=== PATIENT | female | born 1965 | race Caucasian/White ===

== ENCOUNTER 2023-11-25 21:27 | Observation (INO) | payer BC, SELFPAY ==
[2023-11-25 21:33] VITALS: BP 126/68; PULSE 81; RESP 16; TEMP 36.9; O2SAT 98; BMI 21.8
[2023-11-25 22:16] LABS: Add Manual Diff / Slide Review NO; Basophils Absolute Auto 100 /uL (0-100); Basophils Percent Auto 0.6 % (0-2); Eosinophils Absolute Auto 0 /uL (0-450); Eosinophils Percent Auto 0.4 % (2-4); Hematocrit 40.4 % (36-46); Hemoglobin 14.1 g/dL (12.0-16.0); Lymphocytes Absolute Auto 1700 /uL (1100-4500); Lymphocytes Percent Auto 15.7 % (25-40); Mean Corpuscular Hemoglobin 29.9 PG (26-34); Mean Corpuscular Volume 85.6 fL (80-100); Monocytes Absolute Auto 500 /uL (0-900); Monocytes Percent Auto 4.3 % (3-14); Neutrophils Absolute Auto 8700 /uL (1500-7000); Platelet Count 271 X10^3/uL (150-400); Red Blood Cell Count 4.72 X10^6/uL (4.0-5.2); Red Cell Distribution Width 13.4 % (11.6-14.8); White Blood Cell Count 11.1 X10^3/uL (4.5-11.0)
[2023-11-25 22:22] LABS: Alanine Aminotransferase 17 IU/L (<35); Albumin 4.5 g/dL (3.5-5.0); Albumin Globulin Ratio 1.2 (1.0-2.8); Alkaline Phosphatase 85 U/L (38-126); Aspartate Aminotransferase 29 IU/L (14-36); BUN Creatinine Ratio 19.3 (6-22); Bilirubin Total 1.1 mg/dL (0.2-1.3); Blood Urea Nitrogen 11 mg/dL (7-17); Calcium 9.5 mg/dL (8.4-10.2); Carbon Dioxide 23 mmol/L (22-32); Chloride 102 mmol/L (98-107); Estimated Glomerular Filt Rate > 60 mL/min (>60); Globulin 3.8 g/dL (1.7-4.1); Glucose 136 mg/dL (80-110); HEMOLYSIS < 15 (0-50); Lipase 48 U/L (23-300); Potassium 3.9 mmol/L (3.4-5.1); Sodium 136 mmol/L (137-145); Total Protein 8.3 g/dL (6.3-8.2)
--- NOTE | 2023-11-25 22:43 | ED.ABDPAIN ---
HPI - Abdominal Pain General Chief Complaint: Abdominal Pain Stated Complaint: Gall bladder attack Time Seen by Provider: 11/25/23 21:31 Source: patient Mode of arrival: Family Vehicle History of Present Illness HPI narrative: 58-year-old female with history of stage IV breast cancer on maintenance chemotherapy presents for 1 day of nausea, vomiting, generalized abdominal pain. Patient states that she has had intermittent abdominal pains this month and was recently diagnosed with a 9 mm gallstone. Patient has pending appointment with General surgery in December, but states that she was here on vacation visiting family. Today she had worsening of her pain with nausea and vomiting not controlled with Zofran. She was concerned that her gallbladder may be causing her symptoms and decided to present for evaluation. Related Data Home Medications Medication Instructions Recorded Confirmed anastrozole 1 mg tablet 1 mg PO DAILY 11/25/23 11/25/23 bupropion HCl 150 mg tablet,12 hr 150 mg PO DAILY 11/25/23 11/25/23 sustained-release denosumab 60 mg/mL subcutaneous 60 mg SUBCUT [id number] 11/25/23 11/25/23 syringe Allergies Allergy/AdvReac Type Severity Reaction Status Date / Time heparin Allergy Severe Anaphylaxis Verified 11/25/23 21:59 Exam Initial Vital Signs Initial Vital Signs: Vital Signs Temperature 98.5 F 11/25/23 21:33 Pulse Rate 81 11/25/23 21:33 Respiratory Rate 16 11/25/23 21:33 Blood Pressure 126/68 11/25/23 21:33 Pulse Oximetry 98 11/25/23 21:33 Oxygen Delivery Method Room Air 11/25/23 21:33 Const: Awake, alert, no acute distress, nontoxic appearing Cardiac: regular rate, regular rhythm RESP: unlabored, clear bilaterally, no wheezing GI: Soft, generalized tenderness to deep palpation without rebound or guarding, negative Bernal's sign Skin: Warm, Dry, intact, no rashes Neuro: AO x3, CN II-XII grossly intact, moves all extremities Course Orders Ordered: ED Orders 11/25/23 21:53 Complete Blood Count AUTO DIFF Stat Comprehensive Metabolic Panel Stat Lipase Stat 11/25/23 22:42 CT abdomen pelvis w con Stat 11/25/23 22:58 Urine Microscopic Stat Sodium Chloride (Normal Saline 0.9%) 1,000 mls @ 125 mls/hr IV CONT TRINA Discontinued Medications Morphine Sulfate (Morphine 4 Mg/Ml Inj) 4 mg IV NOW ONE Stop: 11/25/23 23:36 Ondansetron HCl (Ondansetron 4 Mg/2 Ml Inj) 4 mg IV NOW ONE Stop: 11/25/23 23:36 Vital Signs Vital signs: Vital Signs - 8 hr 11/25/23 21:33 Temperature 98.5 F Pulse Rate 81 Respiratory Rate 16 Blood Pressure 126/68 Pulse Oximetry 98 Oxygen Delivery Method Room Air MDM - Abdominal Pain Differential Diagnosis Differential diagnosis: Likely abdominal pain, constipation and small bowel obstruction Lab Data 11/25/23 21:53 11/25/23 21:53 Labs: Lab Results 11/25/23 Range/Units 21:53 WBC 11.1 H (4.5-11.0) X10^3/uL RBC 4.72 (4.0-5.2) X10^6/uL Hgb 14.1 (12.0-16.0) g/dL Hct 40.4 (36-46) % MCV 85.6 (80-100) fL MCH 29.9 (26-34) PG MCHC 35.0 (30-36) % RDW 13.4 (11.6-14.8) % Plt Count 271 (150-400) X10^3/uL Neut % (Auto) 79.0 H (50-75) % Lymph % (Auto) 15.7 L (25-40) % [place] % (Auto) 4.3 (3-14) % Eos % (Auto) 0.4 L (2-4) % Baso % (Auto) 0.6 (0-2) % Neut # (Auto) 8700 H (7188-9654) /uL Lymph # (Auto) 1700 (8068-3359) /uL [place] # (Auto) 500 (0-900) /uL Eos # (Auto) 0 (0-450) /uL Baso # (Auto) 100 (0-100) /uL Sodium 136 L (137-145) mmol/L Potassium 3.9 (3.4-5.1) mmol/L Chloride 102 (98-107) mmol/L Carbon Dioxide 23 (22-32) mmol/L BUN 11 (7-17) mg/dL Creatinine 0.57 (0.52-1.04) mg/dL Estimated GFR > 60 (>60) mL/min BUN/Creatinine Ratio 19.3 (6-22) Glucose 136 H (80-110) mg/dL Calcium 9.5 (8.4-10.2) mg/dL Total Bilirubin 1.1 (0.2-1.3) mg/dL AST 29 (14-36) IU/L ALT 17 (<35) IU/L Alkaline Phosphatase 85 (38-126) U/L Total Protein 8.3 H (6.3-8.2) g/dL Albumin 4.5 (3.5-5.0) g/dL Globulin 3.8 (1.7-4.1) g/dL Albumin/Globulin Ratio 1.2 (1.0-2.8) Lipase 48 (23-300) U/L Point of care testing: Urine Dip Bedside Urine Glucose Negative Bedside Urine Bilirubin - Negative Bedside Urine Ketone +/- 5 Urine Specific [place] 1.015 Bedside Urine Occult Blood - Negative Bedside Urine pH 7.0 Bedside Urine Protein +/- 15 Bedside Urine Urobilinogen +/- 1mg Bedside Urine Nitrite - Negative Bedside Urine Leukocytes +/- [address] scan - abdomen/pelvis: Radiologist's Impression: PROCEDURE: CT ABDOMEN PELVIS W CON INDICATIONS: GEN ABD PAIN, N/V, WORSE SUPRAPUBIC TECHNIQUE: After the administration of intravenous contrast, axial sections acquired from the lung bases to the pubic symphysis. Coronal and sagittal reformats were performed. For radiation dose reduction, the following was used: automated exposure control, adjustment of mA and/or kV according to patient size. COMPARISON: None. FINDINGS: Image quality: Diagnostic. Lower Chest: No significant findings. ABDOMEN: Liver: No solid mass. Gallbladder: Cholelithiasis without CT evidence of acute cholecystitis. Biliary ducts: No biliary dilation. Pancreas: No ductal dilation. Spleen: Size is within normal limits. Adrenal Glands: No adrenal nodules. Kidneys and Ureters: No hydronephrosis. Bilateral extrarenal pelvises No solid mass. No complex renal cystic lesion which requires follow up. Stomach and Bowel: Wall thickening the gastric antrum. Normal colonic caliber, without significant wall thickening. Anastomotic sutures in the right colon. Dilated loops of small bowel with air-fluid levels measuring up to 4.7 cm. There appears to be a transition point within the pelvis (2/67, 4/46). Peritoneum: Trace free intraperitoneal fluid, likely reactive. No free air. Ventral Wall: No significant ventral hernia. Abdominal Nodes: Prominent and enlarged retroperitoneal lymph nodes. For example a right periaortic lymph node measuring 1.3 cm (2/37) and a left periaortic lymph node measuring 1.2 cm (2/28). Vessels: Aorta and inferior vena cava are normal in size. Mild atherosclerotic vascular calcifications. PELVIS: Pelvic Organs: Unremarkable. Bladder: No bladder wall thickening, accounting for underdistention. Pelvic Nodes: No enlarged lymph nodes. Miscellaneous: No inguinal hernias are seen. Bones: No aggressive osseous abnormality. Degenerative changes of the spine, most pronounced at L4-5. IMPRESSION: 1. Findings consistent with small-bowel obstruction with transition point in the pelvis. No extraluminal gas to suggest perforation. 2. Enlarged retroperitoneal lymph nodes, given history of cancer this is concerning for metastatic disease. Recommend attention on follow-up exams. 3. Wall thickening of the gastric antrum, nonspecific. May represent gastritis. Attention on follow-up. 4. Cholelithiasis without evidence of acute cholecystitis. Dictated by: Tariq Lobo M.D. on 11/25/2023 at 23:03 Approved by: Tariq Lobo M.D. on 11/25/2023 at 23:09 [facility] Narrative Medical decision making narrative: Nontoxic appearing patient with worsening of previous abdominal pain. Abdomen soft, no peritoneal signs. Patient was concerned that her gallbladder may be causing her symptoms, however her point of maximum discomfort is in her lower abdomen near the suprapubic region. Lesser suspicion for cholecystitis at this time based on exam. Patient states that her nausea and pain are currently controlled. IV fluids running. Laboratory work and CT imaging to be ordered. Laboratory work shows WBC count 11.1, hemoglobin 14.1, platelets 271, sodium 136, potassium 3.9, creatinine 0.57, T bili 1.1, AST 29, ALT 17, alk phos 85. CT of the abdomen and pelvis shows small bowel obstruction with transition point in the lower pelvis. Enlarged lymph nodes concerning for metastatic disease, however there are no priors for comparison. Patient informed of all lab and imaging results including the enlarged lymph nodes on CT. I discussed case with on-call general surgery Dr. Nova, who will admit the patient to her service. Prior to going upstairs patient requested pain and nausea medications, which were ordered. Discharge Plan Departure Patient Disposition: Admitted as Observation Clinical Impression: Small bowel obstruction, Stage IV carcinoma of breast Admit Date/Time: 11/25/23 23:33 Admit Provider: Lizette Nova
[2023-11-25] MEDS: HYDROMORPHONE 1 MG INJ IV (23:50)
[2023-11-25] MEDS: ONDANSETRON 4 MG/2 ML INJ IV (23:51)
[2023-11-25] MEDS: SODIUM CHLORIDE 0.9% 1,000 ML 125 ML IV (23:51)
[2023-11-25 23:58] LABS: RBC Urine None Seen (0-5/HPF); Urine Volume Low Vol <10mL (spun); WBC Urine 0-1/HPF (0-5/HPF)
[2023-11-25 23:59] LABS: Bacteria Urine Occasional (0-1); Culture Indicated Urine Cult Not Indicated; Mucus Urine 1+ (Negative); Squamous Epithelial Cell Urine 0-1 /HPF (0-5/HPF)
--- NOTE | 2023-11-26 | DI.RAD.S_ITS ---
PROCEDURE: XR GASTROGRAFIN CHALLENGE COMPARISON: None. INDICATIONS: sbo FINDINGS: 2 hours after administration of Gastrografin, there is intraluminal contrast throughout the large bowel. IMPRESSION: 2 hours after administration of Gastrografin, there is intraluminal contrast throughout the large bowel. Dictated by: Reno Carroll M.D. on 11/26/2023 at 13:06 Approved by: Reno Carroll M.D. on 11/26/2023 at 13:06
[2023-11-26 00:08] VITALS: BP 126/78; PULSE 95; RESP 18; TEMP 36.8; O2SAT 98
[2023-11-26 00:21] VITALS: BP 121/87; PULSE 75; RESP 16; TEMP 36.8; O2SAT 99
[2023-11-26] MEDS: DEXTROSE 5%-0.9% NS 1,000 ML 100 ML IV ×2 (00:45→10:54)
[2023-11-26] MEDS: SCOPOLAMINE 1 PATCH TOP (00:49)
[2023-11-26 00:53] VITALS: BMI 21.8
[2023-11-26 00:54] VITALS: BP 128/69; PULSE 64; RESP 18; TEMP 35.9; O2SAT 99
[2023-11-26 06:00] VITALS: BP 116/52; PULSE 57; RESP 18; TEMP 35.9; O2SAT 99
[2023-11-26 06:14] LABS: Add Manual Diff / Slide Review NO; Basophils Absolute Auto 0 /uL (0-100); Basophils Percent Auto 0.4 % (0-2); Eosinophils Absolute Auto 100 /uL (0-450); Eosinophils Percent Auto 1.9 % (2-4); Hematocrit 29.6 % (36-46); Hemoglobin 10.4 g/dL (12.0-16.0); Lymphocytes Absolute Auto 2000 /uL (1100-4500); Lymphocytes Percent Auto 33.3 % (25-40); Mean Corpuscular Hemoglobin 30.9 PG (26-34); Mean Corpuscular Volume 88.2 fL (80-100); Monocytes Absolute Auto 400 /uL (0-900); Monocytes Percent Auto 6.2 % (3-14); Neutrophils Absolute Auto 3600 /uL (1500-7000); Neutrophils Percent Auto 58.2 % (50-75); Platelet Count 170 X10^3/uL (150-400); Red Blood Cell Count 3.36 X10^6/uL (4.0-5.2); White Blood Cell Count 6.2 X10^3/uL (4.5-11.0)
[2023-11-26 08:41] VITALS: BP 96/49; PULSE 46; RESP 16; TEMP 35.8; O2SAT 97
[2023-11-26 09:09] LABS: Blood Urea Nitrogen 6 mg/dL (7-17); Calcium 6.6 mg/dL (8.4-10.2); Carbon Dioxide 20 mmol/L (22-32); Chloride 114 mmol/L (98-107); Estimated Glomerular Filt Rate > 60 mL/min (>60); HEMOLYSIS < 15 (0-50); Potassium 2.8 mmol/L (3.4-5.1); Sodium 140 mmol/L (137-145)
[2023-11-26 10:04] LABS: Glucose 116 mg/dL (80-110)
--- NOTE | 2023-11-26 10:22 | PC.NURSE ---
Addendum entered by Rita Medina R.N. 11/26/23 12:00: Patients K+ 2.8, pharmacy ordered 6 iv potassium riders to be infused. Patient is tolerating them at 65cc/hr. When the rate was at 100cc/hr, she was feeling some discomfort and burning. Patient has a warm blanket over her iv and is napping now, daughter is in room. Original Note: Patient states that she is feeling comfortable at this time. She denies pain or discomfort, Patient up to the bathroom and voided 250cc of yellow urine. She has her family and sister visiting now and patient ambulated in the halls earlier. has ordered her medications and also a gastrografen challenge for today. She will be in later to assess patient. Bt are hypoactive now and patient has not had a bowel movement yet today. Labs were drawn twice and is showed a blood glucose level in the 600s both times. This Rn just checked patients blood sugar and it was 114.
--- NOTE | 2023-11-26 11:06 | CM.DANOTE ---
Initial DCP Assessment Visit Note Reviewed EMR and team rounds for status updates. Met with pt and several family members at bedside to introduce self and role. Pt was found to be alert/ oriented, sitting upright in bed, visiting with family. Pt is here with her family visiting relatives, she lives independently with her spouse in their own home in [place]. Family will transport once she's medically cleared for home d/c. Payor: [employer] Attending: Dr. Nova Pt is a 58 year-old F who presented to the ED last evening with c/o nausea/vomiting, and generalized abdominal pain. She had taken some Zofran without any lasting benefit prior to arriving at the ED. CT abd/pelvis showed cholelithiasis without cholecystititis, as well as enlarged retroperitoneal lymph nodes, which were incidentally found and recommended for further evaluation post-discharge for concerns of metastasis. Pt has been receiving maintenance tx for stage IV breast cancer in [place]. Pt was made NPO, started on IV pain meds/antiemetics, and placed in OBS for further Surgical Consultation, which will be later this afternoon. This morning she was started on a Gastrografin challenge. Dr. Gonzalez will be meeting w/pt around noon today to see if pt has made any progress. DCP will continue to follow and assist with any evolving d/c needs prior to her eventual d/c home w/family. 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 Yes Advance Directives on File No History Provided By Patient,Family Member,Medical Record Has Patient been admitted in last 30 No days? Prior Living Arrangements House Household Members spouse Type of transporation used prior to Drives own vehicle admit Independent with ADL's Yes Is patient alert and oriented? Yes Caregiver for Another No Comment OP Oncology. Comment No identified home d/c needs at this time. Barriers to Discharge No Discharge Plan Home Transportation Arrangement Spouse Referrals Initiated None needed Whiteboard Updated in Patient Room with Yes name and ext. # of Robotic Maintenance Technician Review Status In Process Please Provide Date Initial DC 11/26/23 Assessment Was Performed
[2023-11-26] MEDS: POTASSIUM CHLORIDE IN WATER 10 MEQ/100 ML PIGGYBACK 55 MEQ IV ×2 (11:15→12:57)
[2023-11-26 11:36] VITALS: BP 97/45; PULSE 52; RESP 16; TEMP 36; O2SAT 94
[2023-11-26] MEDS: PANTOPRAZOLE 40 MG VIAL IV (12:56)
--- NOTE | 2023-11-26 14:03 | PM.HP.1 ---
History of Present Illness History of Present Illness Date Patient Seen: 11/26/23 Time Patient Seen: 14:03 Chief complaint: Gall bladder attack Narrative: Complex patient. Currently gastroenteritis, intermittent biliary colic, 15 lbs weight loss, w/o metastatic breast cancer (primary not found, felt to by lobular, 20 yrs ago. Recurrence years later as colon met). Symptoms of RUQ pain that is sharp and intermittent, nausea, vomitting, loose stools to diarrhea, [address] scan has multiple finds that lead me to believe her problem is multifocal. (9mm) gallstone, parital SBO with transition in pelvis and small segment with fecalization (c/w subacute/chronic). Right hydrourteter. Retroperitoneal adenopathy with could be reactive. Gastrografin study shows no obstruction (transit to colon in 2hrs). [facility] Social History household members: spouse Smoking Status: Never smoker Meds Home Medications and Allergies Home Medications Medication Instructions Recorded Confirmed Type anastrozole 1 mg tablet 1 mg PO DAILY 11/25/23 11/25/23 History bupropion HCl 150 mg tablet,12 hr 150 mg PO DAILY 11/25/23 11/25/23 History sustained-release denosumab 60 mg/mL subcutaneous 60 mg SUBCUT [id number] 11/25/23 11/25/23 History syringe oxycodone 5 mg tablet 5 mg PO 4XD PRN Pain, Moderate 11/26/23 Rx (4-6) #20 tabs pantoprazole 40 mg tablet,delayed 40 mg PO BID #60 tabs 11/26/23 Rx release (Protonix) Allergies Allergy/AdvReac Type Severity Reaction Status Date / Time heparin Allergy Severe Anaphylaxis Verified 11/25/23 21:59 Morpholine Analogues AdvReac Intermediate Nightmare Verified 11/26/23 02:43 Review of Systems Review of Systems ROS: Yes All systems reviewed with the patient and are negative except as otherwise documented Exam Vital Signs (past 8 hours): - 11/26/23 07:00 11/26/23 08:41 11/26/23 11:36 Temperature 96.4 F L 96.8 F L Pulse Rate 46 L 52 L Respiratory Rate 16 16 Blood Pressure 96/49 L 97/45 L Pulse Oximetry 97 94 Oxygen Delivery Method Room Air Oxygen Flow Rate 0 0 Oxygen Delivery Method Room Air Oxygen Flow Rate 0 Const General: cooperative, comfortable and No in distress Nutritional Appearance: underweight Orientation: alert, awake and oriented x3 HENIN Head: normocephalic and atraumatic Ears: hearing grossly normal bilaterally Eyes Periorbital: periorbital findings normal Sclera: sclerae normal Neck Neck: trachea midline Resp Effort & Inspection: normal respiratory effort and able to speak in complete sentences Cardio Rate: regular rate Rhythm: regular rhythm GI Inspection: non-distended Palpation: soft Skin General: elasticity normal and turgor normal Neuro General: patient alert, patient awake and patient oriented x3 Cognition: normal cognition Psych Mental Status: mental status grossly normal Judgment: judgment good Objective Labs 11/25/23 21:53 11/26/23 07:10 Labs: Laboratory Results - last 24 hr 11/25/23 11/25/23 11/25/23 05:23 21:52 21:53 WBC 6.2 11.1 H D RBC 3.36 L 4.72 Hgb 10.4 L 14.1 Hct 29.6 L 40.4 MCV 88.2 85.6 MCH 30.9 29.9 MCHC 35.0 35.0 RDW 13.0 13.4 Plt Count 170 271 Neut % (Auto) 58.2 79.0 H D Lymph % (Auto) 33.3 15.7 L [place] % (Auto) 6.2 4.3 Eos % (Auto) 1.9 L 0.4 L Baso % (Auto) 0.4 0.6 Neut # (Auto) 3600 8700 H Lymph # (Auto) 2000 1700 [place] # (Auto) 400 500 Eos # (Auto) 100 0 Baso # (Auto) 0 100 Sodium 136 L Potassium 3.9 Chloride 102 Carbon Dioxide 23 BUN 11 Creatinine 0.57 Estimated GFR > 60 BUN/Creatinine Ratio 19.3 Glucose 136 H Calcium 9.5 Total Bilirubin 1.1 AST 29 ALT 17 Alkaline Phosphatase 85 Total Protein 8.3 H Albumin 4.5 Globulin 3.8 Albumin/Globulin Ratio 1.2 Lipase 48 Urine RBC None seen Urine WBC 0-1/hpf Ur Squamous Epith Cells 0-1 /hpf Urine Bacteria Occasional (0-1) Urine Mucus 1+ H Ur Culture Indicated? Cult not indicated Vol Urine Centrifuged Low vol <10ml (spun) A 11/26/23 07:10 WBC RBC Hgb Hct MCV MCH MCHC RDW Plt Count Neut % (Auto) Lymph % (Auto) [place] % (Auto) Eos % (Auto) Baso % (Auto) Neut # (Auto) Lymph # (Auto) [place] # (Auto) Eos # (Auto) Baso # (Auto) Sodium 140 Potassium 2.8 L Chloride 114 H Carbon Dioxide 20 L BUN 6 L Creatinine 0.43 L Estimated GFR > 60 BUN/Creatinine Ratio 14.0 Glucose 116 H Calcium 6.6 L Total Bilirubin AST ALT Alkaline Phosphatase Total Protein Albumin Globulin Albumin/Globulin Ratio Lipase Urine RBC Urine WBC Ur Squamous Epith Cells Urine Bacteria Urine Mucus Ur Culture Indicated? Vol Urine Centrifuged Assessment & Plan Assessment & Plan narrative: Gastro enteritis likely viral Intermittent biliary colic with 15lb weight loss due to increasing frequency H/o metastatic breast cancer and partial colectomy. CT findings (w/o) symptoms of right hydroureter. And imaging of SBO is may represent adhesive disease and partial obstruction with higher volumes of stool. Plan: Discharge home with Protonix bid for 4 weeks (had normal EGD 3 weeks ago). Scopolamine patch for nausea Diet of low fat, high protein and fiber. Recommend she regain weight in case the loss of body fat makes her adhesive disease more prominent. Recommend elective lap yakov Time-Based Coding :: [TOTAL MINUTES] spent with patient and on the chart (including review of chart, obtaining history, exam, reviewing outside data, placing orders, documenting exam and treatment plan, and counseling patient) on [DATE].
--- NOTE | 2023-11-26 14:29 | PM.DS.1 ---
History of Present Illness History of Present Illness Date Patient Seen: 11/26/23 Time Patient Seen: 14:29 Chief complaint: Gall bladder attack Narrative: Complex patient. Currently gastroenteritis, intermittent biliary colic, 15 lbs weight loss, w/o metastatic breast cancer (primary not found, felt to by lobular, 20 yrs ago. Recurrence years later as colon met). Symptoms of RUQ pain that is sharp and intermittent, nausea, vomitting, loose stools to diarrhea, [address] scan has multiple finds that lead me to believe her problem is multifocal. (9mm) gallstone, parital SBO with transition in pelvis and small segment with fecalization (c/w subacute/chronic). Right hydrourteter. Retroperitoneal adenopathy with could be reactive. Gastrografin study shows no obstruction (transit to colon in 2hrs). Discharge Providers Provider Date of admission: 11/25/23 23:33 Discharge Date: 11/26/23 Primary care physician: Doctor Sarina MD Discharge provider: Lizette Nova MD Summary Hospital Course Discharge Diagnosis: gastroenteritis biliary colic underweight Hospital Course: Bowel rest and gastrografin challege (proving no persistent obstruction). anti nausea, IV hydration. The hyper glycemia and low potassium likely from draw in relation to IV. Status at Discharge Cognitive/behavioral status at discharge: oriented Functional status at discharge: independent ambulation Overall status at discharge: patient is progressing back to baseline Time Spent with Patient Time spent: Greater than 30 minutes Exam Vital Signs (past 8 hours): - 11/26/23 07:00 11/26/23 08:41 11/26/23 11:36 Temperature 96.4 F L 96.8 F L Pulse Rate 46 L 52 L Respiratory Rate 16 16 Blood Pressure 96/49 L 97/45 L Pulse Oximetry 97 94 Oxygen Delivery Method Room Air Oxygen Flow Rate 0 0 Oxygen Delivery Method Room Air Oxygen Flow Rate 0 Narrative Exam Narrative: see H and P Objective Labs 11/25/23 21:53 11/26/23 07:10 Labs: Laboratory Results - last 24 hr 11/25/23 11/25/23 11/25/23 05:23 21:52 21:53 WBC 6.2 11.1 H D RBC 3.36 L 4.72 Hgb 10.4 L 14.1 Hct 29.6 L 40.4 MCV 88.2 85.6 MCH 30.9 29.9 MCHC 35.0 35.0 RDW 13.0 13.4 Plt Count 170 271 Neut % (Auto) 58.2 79.0 H D Lymph % (Auto) 33.3 15.7 L [place] % (Auto) 6.2 4.3 Eos % (Auto) 1.9 L 0.4 L Baso % (Auto) 0.4 0.6 Neut # (Auto) 3600 8700 H Lymph # (Auto) 2000 1700 [place] # (Auto) 400 500 Eos # (Auto) 100 0 Baso # (Auto) 0 100 Sodium 136 L Potassium 3.9 Chloride 102 Carbon Dioxide 23 BUN 11 Creatinine 0.57 Estimated GFR > 60 BUN/Creatinine Ratio 19.3 Glucose 136 H Calcium 9.5 Total Bilirubin 1.1 AST 29 ALT 17 Alkaline Phosphatase 85 Total Protein 8.3 H Albumin 4.5 Globulin 3.8 Albumin/Globulin Ratio 1.2 Lipase 48 Urine RBC None seen Urine WBC 0-1/hpf Ur Squamous Epith Cells 0-1 /hpf Urine Bacteria Occasional (0-1) Urine Mucus 1+ H Ur Culture Indicated? Cult not indicated Vol Urine Centrifuged Low vol <10ml (spun) A 11/26/23 07:10 WBC RBC Hgb Hct MCV MCH MCHC RDW Plt Count Neut % (Auto) Lymph % (Auto) [place] % (Auto) Eos % (Auto) Baso % (Auto) Neut # (Auto) Lymph # (Auto) [place] # (Auto) Eos # (Auto) Baso # (Auto) Sodium 140 Potassium 2.8 L Chloride 114 H Carbon Dioxide 20 L BUN 6 L Creatinine 0.43 L Estimated GFR > 60 BUN/Creatinine Ratio 14.0 Glucose 116 H Calcium 6.6 L Total Bilirubin AST ALT Alkaline Phosphatase Total Protein Albumin Globulin Albumin/Globulin Ratio Lipase Urine RBC Urine WBC Ur Squamous Epith Cells Urine Bacteria Urine Mucus Ur Culture Indicated? Vol Urine Centrifuged [facility] Social History household members: spouse Smoking Status: Never smoker Discharge Assessment & Plan Assessment and Plan Assessment: gastroenteritis and recurrent biliary colic Plan of Treatment: diet change Elective lap yakov weight gain. Discharge Plan Discharge Plan Patient Disposition: Home Discharge orders & Medications Prescriptions: New oxycodone 5 mg Tablet 5 mg PO 4XD PRN (Reason: Pain, Moderate (4-6)) Qty: 20 0RF pantoprazole [Protonix] 40 mg tablet,delayed release (DR/EC) 40 mg PO BID Qty: 60 0RF Continued anastrozole 1 mg tablet 1 mg PO DAILY bupropion HCl 150 mg tablet sustained-release 12 hr 150 mg PO DAILY denosumab 60 mg/mL Syringe 60 mg SUBCUT [id number] Follow up/Referrals: Sarina,, [Primary Care Provider] - Diet/Activity/Treatments Diet: Diet as Tolerated Diet comment: low fat, high protein, high fiber(at least 20 gm per day) Activity: no restrictions Other treatments: Take immodium AD as needed for severe diarrhea Skin/Wound/Dressing Care Report to your healthcare provider any signs of infection, such as:: increased pain Visit Report/Discharge Packet Instructions: DI for Biliary Colic Stand Alone Forms: Patient Portal/API, Stroke Signs & Symptoms Discharge Data Primary Care Provider: Doctor Sarina Attending Provider: Lizette Nova Admit Date/Time: 11/25/23 23:33
== END 2023-11-26 15:04 | disposition home or self-care (01) ==
LOC: ED 21:49 → AC 23:35
PROVIDERS: Admitting Provider Surgery; Emergency Provider Emergency Medicine; Referring Provider Emergency Medicine; Visit Provider Surgery
DX: K52.9 Noninfective gastroenteritis and colitis, unspecified (principal); K80.20 Calculus of gallbladder without cholecystitis without obstruction; R63.4 Abnormal weight loss; Z85.3 Personal history of malignant neoplasm of breast; N13.4 Hydroureter
CPT/HCPCS: 36415; 74018; 74177; 80048; 80053; 81003; 81015; 83690; 85025; 96361; 96374; 96375; 99284; G0378; J1170; J2405; J2470; Q9967